=== PATIENT | male | born 1985 | race Caucasian/White ===

== ENCOUNTER 2016-12-23 15:32 | Emergency (ER) | payer MEDICAID ==
[~2016-12-23] VITALS: Ht 170.2 cm; Wt 70.0 kg
[2016-12-23 15:35] VITALS: Ht 170.2 cm; Wt 70.0 kg
--- NOTE | 2016-12-23 16:42 | ERD ---
ER Documentation Chief Complaint Date/Time DATE: 12/23/16 TIME: 16:40 Chief Complaint MID ABDOMINAL PAIN STARTED TODAY DENIES N/V HPI 31 yo M no pmhx who presents to ED with neot-umbilical abdominal pain, cramping , started today. Now alleviated. No post-prandial symptoms, 1 loose stool, no vomiting. No fever, chills, cough. No dysuria, or constipation. Similar episode 2 months ago with spontaneous resolution. Denies ETOH use. ROS All systems reviewed and are negative except as per history of present illness. Medications Home Meds Active Scripts Dicyclomine Hcl* (Bentyl*) 10 Mg Capsule, 10 MG PO TID Y for abdominal cramping , #20 CAP Prov:JAMES MACDONALD MD 12/23/16 PMhx/Soc Medical and Surgical Hx: pt denies Medical Hx FmHx Family History: No diabetes Physical Exam Vitals Vital Signs Date Time Temp Pulse Resp B/P Pulse Ox O2 Delivery O2 Flow Rate FiO2 12/23/16 15:35 98.5 80 18 120/67 95 Physical Exam General: Well developed, well nourished, no acute distress Head: Normocephalic, atraumatic. Eyes: Pupils equally reactive, EOM intact ENT: Moist mucous membranes Neck: Supple, no lymphadenopathy Respiratory: Lungs clear bilaterally, no distress Cardiovascular: RRR, no murmurs, rubs, or gallops Abdominal: Soft, non-tender, non-distended, no peritoneal signs, no tenderness to McBurney's point, negative López sign, no inguinal hernia : Deferred MSK: No edema, no unilateral swelling, 5/5 strength Neurologic: Alert and oriented, moving all extremities, normal speech, no focal weakness, no cerebellar signs Skin: No rash Psych: Normal mood Procedures/MDM The patient presents with abdominal pain that is nonspecific and completely alleviated. He has a benign abdominal exam, normal vital signs. This is either a viral process versus gas and indigestion. I do not believe this is consistent with acute cholecystitis, hepatobiliary obstruction, acute gastritis , acute appendicitis or acute testicular process. Again, very benign abdominal exam and complete resolution of symptoms. I offered laboratory testing I do not feel this is necessary at this time given complete resolution of symptoms and the patient is otherwise well-appearing. I did discuss however, return precautions for worsening symptoms including fever, anorexia, migratory pain to the right lower quadrant. The patient verbalizes understanding. I believe a trial of Bentyl would be reasonable given abdominal cramping and loose stools. We discussed follow up with the patient's primary care doctor within 24 to 48 hours as needed. We also discussed return to the emergency room for worsening symptoms or worsening condition. Outpatient referral: None required Discharge Medications: Bentyl Departure Diagnosis: Primary Impression: Periumbilical abdominal pain Condition: Good JAMES MACDONALD MD Dec 23, 2016 16:42
[2016-12-23] MEDS ORDERED: DICY10CA60 PO (16:47)
== END 2016-12-23 16:57 | disposition home or self-care (01) ==
LOC: FTE 15:32
DX: R10.33 Periumbilical pain (principal)
CPT/HCPCS: 99283